=== PATIENT | female | born 1995 | race Caucasian/White ===

== ENCOUNTER 2017-09-18 16:49 | Emergency (ER) | payer MEDICAID ==
[~2017-09-18] VITALS: Ht 157.5 cm; Wt 83.0 kg
[2017-09-18 17:09] VITALS: Ht 157.5 cm; Wt 83.0 kg
[2017-09-18 22:54] VITALS: BP 117/81
== END 2017-09-18 22:54 | disposition home or self-care (01) ==
LOC: ED 16:49
DX: N12 Tubulo-interstitial nephritis, not specified as acute or chronic (principal)
CPT/HCPCS: J1885; Q0162

== ENCOUNTER 2018-03-27 09:00 | Emergency (ER) | payer MEDICAID ==
[~2018-03-27] VITALS: Ht 157.5 cm; Wt 84.8 kg
[2018-03-27 09:04] VITALS: Ht 157.5 cm; Wt 84.8 kg
== END 2018-03-27 09:26 | disposition home or self-care (01) ==
LOC: ED 09:00
DX: J06.9 Acute upper respiratory infection, unspecified (principal)

== ENCOUNTER 2018-10-23 10:27 | Emergency (ER) | payer SELFPAY ==
[~2018-10-23] VITALS: Ht 157.5 cm; Wt 83.5 kg
[2018-10-23 11:00] VITALS: Ht 157.5 cm; Wt 83.5 kg
[2018-10-23 12:19] LABS: PLATELET COUNT 369 x10^3mcL (130-400)
[2018-10-23 12:22] LABS: RED CELL DISTRIBUTION WIDTH 14.6 % (11.5-14.5)
[2018-10-23 12:35] LABS: CARBON DIOXIDE 25.8 mmol/L (21-32); CHLORIDE SERUM 102 mmol/L (98-107); CREATININE SERUM 0.6 mg/dL (0.6-1.0); GFR1 > 60 mL/min; GLUCOSE SERUM 85 mg/dL (74-106); POTASSIUM SERUM 4.1 mmol/L (3.5-5.1); SODIUM SERUM 140 mmol/L (136-145)
[2018-10-23 12:41] LABS: ALKALINE PHOSPHATASE 109 U/L (46-116); ALT/SGPT 5 U/L (14-59); AST/SGOT 8 U/L (15-37); BILIRUBIN TOTAL 0.47 mg/dL (0.20-1.00); TOTAL PROTEIN, SERUM 8.1 g/dL (6.4-8.2)
[2018-10-23 14:16] LABS: BAND NEUTROPHIL 0 % (0-10); MONOCYTE 6 % (0-7); SEGMENTED NEUTROPHILS 70 % (37-75); rbc morphology (normal/abnorm) ABNORMAL (NORMAL)
[2018-10-23 14:17] LABS: PLATELET MORPHOLOGY PLATELETS NORMAL
[2018-10-23 16:14] VITALS: BP 112/73
== END 2018-10-23 16:15 | disposition home or self-care (01) ==
LOC: ED 10:27
PROVIDERS: Emergency Medicine
DX: A08.4 Viral intestinal infection, unspecified (principal)
CPT/HCPCS: J1885; J2405; J7030; Q9967